=== PATIENT | female | born 1960 | race Caucasian/White ===

== ENCOUNTER 2016-10-05 18:50 | Emergency (ER) | payer SELFPAY ==
[~2016-10-05] VITALS: Ht 160 cm; Wt 85.5 kg
[~2016-10-05 18:50] MED LIST: ALPR0.5T PO; IBUP-1542 PO; IBUPROFEN
[2016-10-05 19:10] VITALS: Ht 160 cm; Wt 85.5 kg
== END 2016-10-06 00:01 | disposition left against medical advice (07) ==
LOC: E/R 18:50
DX: Z53.21 Procedure and treatment not carried out due to patient leaving prior to being seen by health care provider (principal)

== ENCOUNTER → 2017-03-01 | Emergency (ER) | payer MEDICAID ==
[~2017-03-01] VITALS: Ht 152.4 cm; Wt 85.5 kg
[~2017-03-01] MED LIST changes: +DEXAMETHASONE 10 MG/ML 1 ML INJ IM ONE; +HYDROCODONE/APAP (5/325) TAB PO ONE; +KETOROLAC 30 MG INJ IM STA; +NAPR-260 PO; +ONDANSETRON (ODT) 4 MG TAB ODT STA
[2017-03-01 18:56] VITALS: Ht 152.4 cm; Wt 85.5 kg
--- NOTE | 2017-03-01 19:52 | ERD ---
ER Documentation Chief Complaint Date/Time DATE: 03/01/17 TIME: 19:50 Chief Complaint left knee pain x 2 days, denies injury HPI This patient is a 56-year-old Tajik-speaking female with translation help from her adult daughter presenting to the emergency department for chronic bilateral knee pain with acute exacerbation over the past 2 days. The patient also has history of osteoarthritis, hypertension, type 2 diabetes, hypothyroidism, and elevated cholesterol. Symptoms are exacerbated with walking. Symptoms are worse in the left knee. Alleviating factors include ibuprofen. Patient denies trauma, other injuries, fevers, chills, redness, or warmth to the joint. ROS All systems reviewed and are negative except as per history of present illness. Medications Home Meds Active Scripts Naproxen* (Naprosyn*) 500 Mg Tablet, 500 MG PO BID Y for PAIN AND/OR INFLAMMATION, #30 TAB Prov:RANDY BECK PA-C 03/01/17 Ibuprofen* (Motrin*) 600 Mg Tab, 600 MG PO TID for PAIN AND/OR INFLAMMATION, # 30 TAB Prov:KYUNG THEODORE MD 12/28/15 Alprazolam* (Xanax*) 0.5 Mg Tab, 0.5 MG PO TID for PALPITATION, #12 TAB Prov:KYUNG THEODORE MD 12/28/15 Reported Medications [Motrin 1000mg @ 0600 today] No Conflict Check 12/05/12 Allergies Allergies: Coded Allergies: No Known Allergy (Unverified , 03/01/17) PMhx/Soc History of Surgery: No Anesthesia Reaction: No Hx Neurological Disorder: No Hx Respiratory Disorders: No Hx Cardiac Disorders: Yes (HTN) Hx Psychiatric Problems: No Hx Miscellaneous Medical Probl: Yes (DM, HTN, Hypertyrodsim ) Hx Alcohol Use: No Hx Substance Use: No Hx Tobacco Use: No Physical Exam Vitals Vital Signs Date Time Temp Pulse Resp B/P Pulse Ox O2 Delivery O2 Flow Rate FiO2 03/01/17 18:56 99.1 55 20 170/94 97 Physical Exam Const: Nontoxic, well-appearing female in no acute distress. Head: Atraumatic Eyes: Normal Conjunctiva ENT: Normal External Ears, Nose and Mouth. Neck: Full range of motion..~ No meningismus. Resp: Clear to auscultation bilaterally Cardio: Regular rate and rhythm, no murmurs Abd: Soft, non tender, non distended. Normal bowel sounds Skin: No petechiae or rashes Back: No midline or flank tenderness Ext: There is some tenderness palpation of the left knee near the anterior joint line. There is mild edema to the left knee but no ecchymosis noted. There is no warmth to the joint. The patient has limited active and passive range of motion secondary to pain. 2+ pedal pulses noted to the left foot. Neur: Awake and alert Psych: Normal Mood and Affect Results 24 hrs Current Medications Medications (Trade) Dose Ordered Sig/Donovan Route PRN Reason Start Time Stop Time Status Last Admin Dose Admin Ketorolac Tromethamine (Toradol) 30 mg ONCE STAT IM 03/01/17 19:26 03/01/17 19:28 DC 03/01/17 19:47 Dexamethasone (Decadron) 10 mg ONCE ONCE IM 03/01/17 19:30 03/01/17 19:31 DC 03/01/17 19:47 Acetaminophen/ Hydrocodone Bitart ([place] (5/325)) 1 tab ONCE ONCE PO 03/01/17 19:30 03/01/17 19:31 DC 03/01/17 19:48 Ondansetron HCl (Zofran Odt) 4 mg ONCE STAT ODT 03/01/17 19:26 03/01/17 19:28 DC 03/01/17 19:48 Procedures/MDM This patient is a 56-year-old female presenting to the emergency department with chronic bilateral knee pain and osteoarthritis. I believe the patient's acute pain is a exacerbation of her chronic osteoarthritis and chronic knee pain. The patient has had multiple negative plain films in the past and I do not believe that repeat imaging is clinically indicated in the emergency department at this point. However, the patient was advised that she may need further imaging studies such as an MRI as an outpatient. She was advised to have close follow-up with the primary care physician. I have low suspicion for septic joint, fracture, sepsis, or other emergent conditions. The patient was medicated in the department and she was feeling improved upon reevaluation. She is stable for outpatient management with a prescription for naproxen. Her questions and concerns were addressed and she demonstrated good understanding of the discharge plan and diagnosis. Strict ER return precautions were discussed. Departure Diagnosis: Primary Impression: Chronic pain of left knee Condition: Fair Patient Instructions: Reducing Knee Pain and Swelling Referrals: [facility] Usted se lovett hecho un examen mdico de control que le indica que no est en hunter condicin que requiera tratamiento urgente en el Departamento de Emergencia. Un estudio ms profundo y el tratamiento de bird condicin pueden esperar sin ningn riesgo hasta que usted sea atendida/o en el consultorio de bird mdico o hunter cl mary ann. Es responsabilidad suya arreglar hunter francisco para el seguimiento del melanie. MANEJO DE CONDICIONES NO URGENTES EN EL FUTURO 1) Si usted tiene un mdico de atencin primaria: Usted debera llamar a bird mdico de atencin primaria antes de venir al departamento de emergencia. Despus de las horas de consultorio, bird doctor o bird asociado/a est disponible por telfono. El mdico o enfermero de faye en el servicio telefnico puede asesorarle por katelin medio para atender el problema, o melanie contrario se puede programar hunter francisco. 2) Si usted no tiene un mdico de atencin primaria: Llame al mdico o clnica de referencia que aparece abajo alena las horas de consultorio para hacer hunter francisco para que le vean. CLINICAS: [facility] [phone] [facility] [phone] [facility] [phone] [facility] [phone] [facility] [phone] [facility]. [phone] [address] Additional Instructions: No mas mejor en 2-3 duarte, regresar. Mas peor en 24 horas, regresear rapidamente. Ir a doctor primario in 5-7 duarte. Usar instrucciones cuando sonu medicamento. RANDY BECK PA-C Mar 01, 2017 19:52
[2017-03-01 20:16] VITALS: BP 165/92; PULSE 55; RESP 20; TEMP 99.1
== END | disposition home or self-care (01) ==
LOC: FTE 18:48
DX: M25.562 Pain in left knee (principal); E11.9 Type 2 diabetes mellitus without complications; I10 Essential (primary) hypertension; E03.9 Hypothyroidism, unspecified
CPT/HCPCS: 96372; J1100; J1885; Z7502; Z7610

== ENCOUNTER 2017-08-07 19:19 | Inpatient (IN) | payer MEDICAID, OTHER ==
[~2017-08-07] VITALS: Ht 162.6 cm; Wt 85.2 kg
[~2017-08-07 19:19] MED LIST changes: -DEXAMETHASONE 10 MG/ML 1 ML INJ IM ONE; -HYDROCODONE/APAP (5/325) TAB PO ONE; -KETOROLAC 30 MG INJ IM STA; -ONDANSETRON (ODT) 4 MG TAB ODT STA
[2017-08-07 21:44] LABS: BASOPHILS % 0.4 % (0.0-2.0); EOSINOPHILS # 0.2 10^3/ul (0.0-0.5); EOSINOPHILS % 2.1 % (0.0-7.0); HEMATOCRIT 37.3 % (37.0-47.0); HEMOGLOBIN 12.9 g/dl (12.0-16.0); LYMPHOCYTES # 3.4 10^3/ul (0.8-2.9); LYMPHOCYTES % 33.5 % (15.0-51.0); MEAN CORPUSCULAR HEMOGLOBIN 29.9 pg (29.0-33.0); MEAN CORPUSCULAR HGB CONC 34.6 g/dl (32.0-37.0); MEAN CORPUSCULAR VOLUME 86.5 fl (82.0-101.0); MEAN PLATELET VOLUME 9.6 fl (7.4-10.4); MONOCYTE # 0.7 10^3/ul (0.3-0.9); NEUTROPHIL # 5.8 10^3/ul (1.6-7.5); NEUTROPHILS % 56.6 % (39.0-77.0); PLATELET COUNT 302 10^3/UL (140-415); RED BLOOD COUNT 4.31 10^6/ul (4.20-5.40); RED CELL DISTRIBUTION WIDTH 11.9 % (11.5-14.5); WHITE BLOOD COUNT 10.2 10^3/ul (4.8-10.8)
[2017-08-07 22:15] LABS: ANION GAP 13 (8-16); BLOOD UREA NITROGEN 16 mg/dl (7-20); CALCIUM 9.6 mg/dl (8.4-10.2); CARBON DIOXIDE 27 mmol/L (21-31); CHLORIDE 105 mmol/L (97-110); CREATININE 0.63 mg/dl (0.44-1.00); GLUCOSE 138 mg/dl (70-220); POTASSIUM 3.7 mmol/L (3.5-5.1); SODIUM 141 mmol/L (135-144)
--- NOTE | 2017-08-07 22:17 | RADRPT ---
PROCEDURE: XR Chest. CLINICAL INDICATION: Patient experiencing Syncope. TECHNIQUE: Single frontal view of the chest was obtained COMPARISON: Chest radiograph dated December 28, 2015. FINDINGS: The heart and mediastinum are within normal limits. The lungs are clear. There is no pleural effusion or pneumothorax. Degenerative changes of the spine and shoulder joints are present. IMPRESSION: 1. No acute cardiopulmonary disease. RPTAT:AAJJ Physician Corry Date Time Electronically viewed and signed by Shay Reed Physician on 08/07/2017 22:16 QL/
--- NOTE | 2017-08-07 22:20 | RADRPT ---
PROCEDURE: Noncontrast CT Head. CLINICAL INDICATION: Syncope TECHNIQUE: Noncontrast CT of the head was obtained. The administered radiation dose was CTDI vol = 44.11 mGy, DLP = 720.23 mGy-cm. One or more of the following dose reduction techniques were used: Au tomated exposure control, Adjustment of the mA and/or kV according to patient size, or Use of iterat gage reconstruction technique. COMPARISON: There are no similar studies submitted for comparison. FINDINGS: There is no acute intracranial hemorrhage, midline shift, or mass effect. The cerebral dumont-white ma tter differentiation appears preserved. No extra-axial collection is seen. The cerebral sulci and ve ntricles are within normal limits in size and configuration for patient's age. Low attenuation in th e periventricular and deep cerebral white matter is nonspecific, but suggestive of mild chronic micr oangiopathic change. 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 The basal cisterns are pres erved. The brainstem and cerebellum are grossly unremarkable, although suboptimally evaluated with C T secondary to beam-hardening artifact. There is intracranial calcific atherosclerotic disease invol ving the internal carotid arteries bilaterally. There is a small amount of frothy secretions within the left sphenoid sinus. No air-fluid levels are seen. There is under pneumatization of the mastoid air cells bilaterally. No acute fracture or suspicious osseous lesion is identified. Incomplete osse ous fusion of the posterior arch of C1 is suggested (partially imaged). IMPRESSION: 1. No evidence of an acute intracranial process. 2. Evidence of mild chronic microangiopathic cerebral white matter change. 3. Punctate calcification along the cortex of the right anterior frontal lobe is nonspecific, possib ly representing sequelae of neurocysticercosis or other chronic inflammatory/infectious/traumatic et iology. 4. Intracranial calcific atherosclerotic disease. 5. Small amount of frothy secretions within the left sphenoid sinus. No air-fluid levels. RPTAT: HRC Lisa Encinas Physician Date Time Electronically viewed and signed by Lisa Encinas Physician on 08/07/2017 22:19 JAMES/
[2017-08-07 22:27] LABS: TROPONIN-I < 0.012 ng/ml (0.00-0.12)
[2017-08-07] MEDS ORDERED: hydrALAzine 20 MG INJ IV ONE (22:30)
[2017-08-07] MEDS ORDERED: ACETAMINOPHEN 325 MG TAB PO PRN (23:00)
[2017-08-07] MEDS ORDERED: ONDANSETRON 4 MG INJ IV PRN (23:00)
--- NOTE | 2017-08-07 23:05 | ERD ---
ER Documentation Chief Complaint Chief Complaint sudden dizziness during dinner; Diabetic, EKG done by body worker- SR HPI 56-year-old female with a history of hypertension, diabetes, hypothyroidism, not taking her medications for 6 months, presenting after a syncopal episode at home. She was eating dinner with her family when she suddenly felt dizzy and lost consciousness. Her family states she was unresponsive and limp. She was breathing and had no color change. The patient eventually regained consciousness. They had checked her blood pressure and her systolic blood pressure was over 200. They called ambulance. Patient remembers the entire event. Currently she states she feels generally weak with bilateral shoulder pain that is new, however she denies chest pain, shortness of breath, dizziness , headache, vision disturbance, focal weakness or numbness. There was no trauma. She states her bilateral shoulder pain is new. ROS All systems reviewed and are negative except as per history of present illness. Medications Home Meds Discontinued Reported Medications [Motrin 1000mg @ 0600 today] No Conflict Check 12/05/12 Discontinued Scripts Naproxen* (Naprosyn*) 500 Mg Tablet, 500 MG PO BID Y for PAIN AND/OR INFLAMMATION, #30 TAB Prov:RANDY BECK PA-C 03/01/17 Ibuprofen* (Motrin*) 600 Mg Tab, 600 MG PO TID for PAIN AND/OR INFLAMMATION, # 30 TAB Prov:KYUNG THEODORE MD 12/28/15 Alprazolam* (Xanax*) 0.5 Mg Tab, 0.5 MG PO TID for PALPITATION, #12 TAB Prov:KYUNG THEODORE MD 12/28/15 Allergies Allergies: Coded Allergies: No Known Allergy (Unverified , 08/07/17) PMhx/Soc Medical and Surgical Hx: pt denies Surgical Hx History of Surgery: No Anesthesia Reaction: No Hx Neurological Disorder: No Hx Respiratory Disorders: No Hx Cardiac Disorders: Yes (HTN) Hx Psychiatric Problems: No Hx Miscellaneous Medical Probl: Yes (DM, HTN, hypothyroidism) Hx Alcohol Use: No Hx Substance Use: No Hx Tobacco Use: No Smoking Status: Never smoker FmHx Family History: diabetes, No coronary disease Physical Exam Vitals Vital Signs Date Time Temp Pulse Resp B/P Pulse Ox O2 Delivery O2 Flow Rate FiO2 08/07/17 21:08 98.6 53 20 220/58 100 Room Air 08/07/17 19:35 98.6 58 20 200/100 98 Physical Exam Const: Well-appearing, nontoxic, no apparent distress Head: Atraumatic Eyes: Normal Conjunctiva ENT: Normal External Ears, Nose and Mouth. Neck: Full range of motion..~ No meningismus. No JVD Resp: Clear to auscultation bilaterally Cardio: Regular rate and rhythm, no murmurs. 2+ distal pulses in all 4 extremities Abd: Soft, non tender, non distended. Normal bowel sounds Skin: No petechiae or rashes Back: No midline or flank tenderness Ext: No cyanosis, or edema. Normal to inspection and palpation. Full range of motion of all joints., Neur: Awake and alert Oriented 3, cranial nerves intact, strength and sensations intact in all 4 extremities. Romberg negative. no pronator drift. Normal gait. Cerebellar exam normal. Psych: Normal Mood and Affect Result Diagram: 08/07/17 2100 08/07/17 2100 Results 24 hrs Laboratory Tests Test 08/07/17 21:00 White Blood Count 10.210^3/ul Red Blood Count 4.3110^6/ul Hemoglobin 12.9g/dl Hematocrit 37.3% Mean Corpuscular Volume 86.5fl Mean Corpuscular Hemoglobin 29.9pg Mean Corpuscular Hemoglobin Concent 34.6g/dl Red Cell Distribution Width 11.9% Platelet Count 88567^3/UL Mean Platelet Volume 9.6fl Neutrophils % 56.6% Lymphocytes % 33.5% Monocytes % 7.0% Eosinophils % 2.1% Basophils % 0.4% Nucleated Red Blood Cells % 0.0/100WBC Neutrophils # 5.810^3/ul Lymphocytes # 3.410^3/ul Monocytes # 0.710^3/ul Eosinophils # 0.210^3/ul Basophils # 0.010^3/ul Nucleated Red Blood Cells # 0.010^3/ul Sodium Level 141mmol/L Potassium Level 3.7mmol/L Chloride Level 105mmol/L Carbon Dioxide Level 27mmol/L Anion Gap 13 Blood Urea Nitrogen 16mg/dl Creatinine 0.63mg/dl Glucose Level 138mg/dl Calcium Level 9.6mg/dl Troponin I < 0.012ng/ml Current Medications Medications (Trade) Dose Ordered Sig/Donovan Route PRN Reason Start Time Stop Time Status Last Admin Dose Admin Hydralazine HCl (Apresoline) 10 mg ONCE ONCE IV 08/07/17 22:30 08/07/17 22:31 DC 08/07/17 22:46 Ondansetron HCl (Zofran Inj) 4 mg ER BRIDGE PRN IV NAUSEA AND/OR VOMITING 08/07/17 23:00 08/08/17 22:59 Acetaminophen (Tylenol Tab) 650 mg ER BRIDGE PRN PO MILD PAIN/FEVER 08/07/17 23:00 08/08/17 22:59 Procedures/MDM EMERGENT LABS AND DIAGNOSTIC STUDIES: Lab Results above were reviewed and interpreted by me. CBC unremarkable BMP unremarkable Troponin within normal limits 12-lead EKG was interpreted by Ari Parada MD: Sinus bradycardia Normal axis Normal intervals No acute ST or T wave changes suggestive of acute ischemia or STEMI. Radiology Results as interpreted by Radiology below were reviewed by Aurea Parada MD: Chest x-ray: No acute cardiopulmonary disease CT head: IMPRESSION: 1. No evidence of an acute intracranial process. 2. Evidence of mild chronic microangiopathic cerebral white matter change. 3. Punctate calcification along the cortex of the right anterior frontal lobe is nonspecific, possibly representing sequelae of neurocysticercosis or other chronic inflammatory/infectious/traumatic etiology. 4. Intracranial calcific atherosclerotic disease. 5. Small amount of frothy secretions within the left sphenoid sinus. No air- fluid levels. RPTAT: HRC Physician Sabine Date Time Electronically viewed and signed by Lisa Encinas Physician on 08/07/2017 22: 19 Initial Nursing notes reviewed. Previous Medical Records requested via the Electronic Health Record. EMERGENCY DEPARTMENT COURSE / MEDICAL DECISION MAKING: The patient presented after a syncopal episode. She was noted to have significantly high blood pressure, concerning for hypertensive emergency versus urgency. Hydralazine 10 mg IV was given. Differential includes but is not limited to cardiac arrhythmia or ischemia, pulmonary embolism, vasovagal syncope , situational syncope, dehydration with orthostatic hypotension, hemorrhage, sepsis, stroke ,ICH, hypoglycemia. I have a low suspicion for seizure, stroke, or serious head injury. Low suspicion for dissection. Blood sugar was normal. EKG showed no significant arrhythmia or ischemia. Labs were notable for unremarkable. Chest Xray showed no acute abnormalities. CT head did not show any evidence of stroke or intracranial hemorrhage. Given the patients medical history and risk factors, occult etiology such as fatal dysrhythmia cannot be ruled out. I do not believe patient is safe for discharge and will need admission for telemetry monitoring and further workup. Accepting Care Team: Current data and ongoing care discussed. Time: Time of admission Primary Provider: Edu Outstanding Data: none Departure Diagnosis: Primary Impression: Syncope Syncope type: unspecified Qualified Code: R55 - Syncope, unspecified syncope type Additional Impression: Hypertensive urgency Condition: Serious STUART PARADA MD Aug 07, 2017 23:05
[2017-08-08] VITALS (15 sets, daily range): BP systolic 132–194; BP diastolic 60–80; PULSE 40–71; RESP 16–18; TEMP 98.6; Ht 162.6 cm; Wt 85.2 kg
[2017-08-08] MEDS ORDERED: DEXTROSE 50% 50 ML SYRINGE IV PRN ×2 (04:00)
[2017-08-08] MEDS ORDERED: GLUCOSE GEL 15 GRAM TUBE PO PRN ×2 (04:00)
[2017-08-08] MEDS ORDERED: GLUCAGON 1 MG INJ IM PRN (04:00)
[2017-08-08] MEDS ORDERED: GLUCOSE GEL 15 GRAM TUBE BUCCAL PRN (04:00)
[2017-08-08] MEDS: INSULIN ASPART [NOVOLOG] 3 ML PEN SC SCH ×4 (06:55→20:38)
[2017-08-08 07:32] LABS: BASOPHILS % 0.4 % (0.0-2.0); EOSINOPHILS # 0.2 10^3/ul (0.0-0.5); EOSINOPHILS % 2.3 % (0.0-7.0); HEMOGLOBIN 12.2 g/dl (12.0-16.0); LYMPHOCYTES # 2.8 10^3/ul (0.8-2.9); LYMPHOCYTES % 33.2 % (15.0-51.0); MEAN CORPUSCULAR HEMOGLOBIN 29.5 pg (29.0-33.0); MEAN CORPUSCULAR HGB CONC 33.9 g/dl (32.0-37.0); MEAN PLATELET VOLUME 9.7 fl (7.4-10.4); MONOCYTE # 0.5 10^3/ul (0.3-0.9); MONOCYTES % 6.4 % (0.0-11.0); NEUTROPHIL # 4.8 10^3/ul (1.6-7.5); NEUTROPHILS % 57.3 % (39.0-77.0); PLATELET COUNT 295 10^3/UL (140-415); RED BLOOD COUNT 4.14 10^6/ul (4.20-5.40); WHITE BLOOD COUNT 8.4 10^3/ul (4.8-10.8)
[2017-08-08 07:46] LABS: ALBUMIN 3.9 g/dl (3.3-4.9); ALBUMIN/GLOBULIN RATIO 1.14; BILIRUBIN,INDIRECT 0.4 mg/dl (0-1.1); BILIRUBIN,TOTAL 0.4 mg/dl (0.2-1.3); CALCIUM 9.5 mg/dl (8.4-10.2); CHOL/HDL RATIO 5.4 RATIO; CREATININE 0.55 mg/dl (0.44-1.00); MAGNESIUM 1.8 mg/dl (1.7-2.5); PHOSPHORUS 4.7 mg/dl (2.5-4.9); POTASSIUM 3.9 mmol/L (3.5-5.1); TOTAL PROTEIN 7.3 g/dl (6.1-8.1)
[2017-08-08 08:12] LABS: THYROID STIMULATING HORMONE 4.61 MIU/L (0.465-4.680)
--- NOTE | 2017-08-08 09:45 | RADRPT ---
PROCEDURE: Carotid ultrasound CLINICAL INDICATION: Hypertension, carotid bruits TECHNIQUE: Eng scale, color doppler, spectral doppler ultrasound of the bilateral carotid and perri tebral arteries. This study indirectly references the measurement of the distal ICA diameter as the denominator for s tenosis measurement. Validated velocity measurements with angiographic measurements, velocity criter ia are extrapolated from diameter data as defined by: *Cartoid artery stenosis: eng-scale and Doppl er US diagnosis. Society of Radiologists in Ultrasound Consensus Conference. Radiology 2003; 229: 34 0-346. SRU Consensus Conference Criteria for the Diagnosis of Carotid Artery Stenosis* Degree of Stenosis, % ICA PSV, cm/sec Plaque Estimate, % ICA/CCA PSV Ratio Normal <125 None <2.0 <50 <125 <50 <2.0 50 69 125-230 >50 2.0-4.0 >70 but less than near occlusion >230 >50 <4.0 Near occlusion High, low, or undetectable Visible Variable Total occlusion Undetectable Visible, no detectable lumen Not applicable COMPARISON: No prior studies are available for comparison. FINDINGS: Location Right CCA69 - 95 cm/sec Prox ICA 78 cm/sec Mid UYL792 cm/sec Dist ICA81 cm/sec HIN718 cm/sec ICA/CCA1.5 Left CCA97 - 109 cm/sec Prox ICA 89 cm/sec Mid ICA92 cm/sec Dist ICA96 cm/sec QDX816 cm/sec ICA/CCA1.0 Plaque burden: No significant plaque is seen. Antegrade flow is seen within the vertebral arteries bilaterally. IMPRESSION: No evidence of a hemodynamically significant carotid stenosis. RPTAT: AADD .Elver Metcalf MD, Date Time Electronically viewed and signed by .Elver Metcalf MD, on 08/08/2017 09:45 .B/
--- NOTE | 2017-08-08 09:51 | HP ---
Date/Time of Note Date/Time of Note DATE: 08/08/17 TIME: 09:43 Assessment/Plan VTE Prophylaxis VTE Prophylaxis Intervention: heparin Lines/Catheters IV Catheter Type (from [facility] [place]): Saline Lock Urinary Cath still in place: No Assessment/Plan Assessment/Plan 1. Syncope, likely secondary to bradycardia -Continue telemetry monitoring Trend troponin Check thyroid profile 2D echo Carotid Doppler ultrasound Cardiology consult 2. Hypertensive urgency Continue antihypertensives adjustment as needed 3. History of diabetes Check A1c Insulin while in-house 4. History of hypothyroidism: Off medication for over 6 months Check TSH and free T4 HPI/ROS Admit Date/Time Admit Date/Time Aug 07, 2017 at 22:49 Hx of Present Illness This is a 56-year-old female with a history of diabetes, arthritis, hypothyroidism, and medication noncompliance. Patient was brought to the ER after having had a syncopal episode. Information is mainly provided from the daughter who was at the bedside. She stated that while the patient was eating dinner, all of a sudden she had loss of consciousness. From description, patient appeared to be flaccid. She never lost a pulse and was actively breathing. No seizure-like activity. No head trauma. Systolic blood pressure at that time was in the 200s. According to the daughter, patient is noncompliant with her medications. She did not take her thyroid medication for over 6 months and she also does not consistently take her diabetes medications. Patient denied chest pain, shortness of breath, palpitations or dizziness/ lightheadedness. She did complain of pain in her shoulder area. When she presented to the ER she was noted to be bradycardic in the 50s. Heart rate so far has been as low as 40. 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 There were no acute findings. Chest x-ray was no active disease. PMH/Family/Social Social History Smoking Status: Never smoker Exam/Review of Systems Vital Signs Vitals Vital Signs Date Time Temp Pulse Resp B/P Pulse Ox O2 Delivery O2 Flow Rate FiO2 08/08/17 08:00 44 08/08/17 07:26 98.0 18 194/80 96 08/08/17 06:24 Room Air Intake and Output 08/07/17 08/07/17 08/08/17 15:00 23:00 07:00 Intake Total 100 ml Balance 100 ml Exam Constitutional: other (No acute distress) Head: atraumatic, normocephalic Eyes: EOMI, PERRL Respiratory: clear to auscultation, normal air movement Cardiovascular: other (Bradycardic with regular rhythm) Gastrointestinal: non-tender, soft Extremities: normal pulses Neurological: nl mental status, nl speech Labs Result Diagram: 08/08/1754 08/08/17 0654 Medications Medications Current Medications Hydralazine HCl (Apresoline) 10 mg Q4 PRN IV ELEVATED SYSTOLIC BP; Start at 05:00 Miscellaneous Information 1 ea NOTE XX ; Start 08/08/17 at 04:00 Glucose (Glutose) 15 gm Q15M PRN PO DECREASED GLUCOSE; Start 08/08/17 at 04:00 Glucose (Glutose) 22.5 gm Q15M PRN PO DECREASED GLUCOSE; Start 08/08/17 at 04: 00 Dextrose (D50w Syringe) 25 ml Q15M PRN IV DECREASED GLUCOSE; Start 08/08/17 at 04:00 Dextrose (D50w Syringe) 50 ml Q15M PRN IV DECREASED GLUCOSE; Start 08/08/17 at 04:00 Glucagon (Glucagen) 1 mg Q15M PRN IM DECREASED GLUCOSE; Start 08/08/17 at 04:00 Glucose (Glutose) 15 gm Q15M PRN BUCCAL DECREASED GLUCOSE; Start 08/08/17 at 04 :00 Influenza Virus Vaccine (Fluzone) 0.5 ml ONCE ONCE IM* ; Start 08/09/17 at 09:00 ; Stop 08/09/17 at 09:01 RANDY SMITH MD Aug 08, 2017 09:51
[2017-08-08] MEDS: hydrALAzine 20 MG INJ IV PRN ×2 (10:16→20:42)
[2017-08-08] MEDS: AMLODIPINE 5 MG TAB PO SCH ×2 (12:15→20:42)
--- NOTE | 2017-08-08 14:44 | PN ---
Date/Time of Note Date/Time of Note DATE: 08/08/17 TIME: 14:38 Assessment/Plan VTE Prophylaxis VTE Prophylaxis Intervention: SCD's Lines/Catheters IV Catheter Type (from [facility]): [place] [facility] Urinary Cath still in place: No Assessment/Plan Chief Complaint/Hosp Course Assessment and plan 1. Syncope. Suspect secondary to bradycardia. Continue telemetry monitoring for now. Serial troponins negative so far. Follow-up on echocardiogram. Of note carotid Doppler did show no evidence of hemodynamically significant carotid artery stenosis. Will monitor on telemetry for now. Accounts Supervisor consultation to follow. 2. Hypertensive urgency. Will start on antihypertensives. Will adjust as needed. 3. History of diabetes. Continue insulin regimen. 4. History of hypothyroidism. Patient reports not taking her medication for 6 months. TSH and T4 within normal levels. Will monitor for now. Disposition plan: Monitor on telemetry. Analgesics for cephalgia. Start on antihypertensives. Accounts Supervisor to follow. Discussed plan of care with Dr. Beatty Problems: Subjective 24 Hr Interval Summary Free Text/Dictation reports having headache Exam/Review of Systems Vital Signs Vitals Vital Signs Date Time Temp Pulse Resp B/P Pulse Ox O2 Delivery O2 Flow Rate FiO2 08/08/17 12:00 71 08/08/17 11:22 98.0 16 177/79 98 08/08/17 06:24 Room Air Intake and Output 08/07/17 08/07/17 08/08/17 14:59 22:59 06:59 Intake Total 100 ml Balance 100 ml Exam Constitutional: alert, obese, oriented Psych: nl mood/affect Head: normocephalic Eyes: nl conjunctiva Neck: non-tender, supple Respiratory: clear to auscultation, normal air movement Cardiovascular: regular rate and rhythm Gastrointestinal: soft Musculoskeletal: nl extremities to inspection Neurological: DIRECTOR IMMUNOLOGY II-XII intact, nl mental status, nl speech Skin: nl turgor Results Result Diagram: 08/08/17 0654 08/08/17 0654 Results 24 hrs Laboratory Tests Test 08/07/17 21:00 08/08/17 06:18 08/08/17 06:54 08/08/17 12:09 White Blood Count 10.2 # 8.4 Red Blood Count 4.31 4.14 L Hemoglobin 12.9 12.2 Hematocrit 37.3 36.0 L Mean Corpuscular Volume 86.5 87.0 Mean Corpuscular Hemoglobin 29.9 29.5 Mean Corpuscular Hemoglobin Concent 34.6 33.9 Red Cell Distribution Width 11.9 12.0 Platelet Count 302 295 Mean Platelet Volume 9.6 # 9.7 Neutrophils % 56.6 57.3 Lymphocytes % 33.5 33.2 Monocytes % 7.0 6.4 Eosinophils % 2.1 2.3 Basophils % 0.4 0.4 Nucleated Red Blood Cells % 0.0 0.0 Neutrophils # 5.8 4.8 Lymphocytes # 3.4 H 2.8 Monocytes # 0.7 0.5 Eosinophils # 0.2 0.2 Basophils # 0.0 0.0 Nucleated Red Blood Cells # 0.0 0.0 Sodium Level 141 143 Potassium Level 3.7 3.9 Chloride Level 105 108 Carbon Dioxide Level 27 27 Anion Gap 13 12 Blood Urea Nitrogen 16 13 Creatinine 0.63 0.55 Glucose Level 138 146 Calcium Level 9.6 9.5 Troponin I < 0.012 < 0.012 Bedside Glucose 131 123 Hemoglobin A1c 6.9 H Phosphorus Level 4.7 Magnesium Level 1.8 Total Bilirubin 0.4 Direct Bilirubin 0.00 Indirect Bilirubin 0.4 Aspartate Amino Transf (AST/SGOT) 27 Alanine Aminotransferase (ALT/SGPT) 44 Alkaline Phosphatase 78 Total Protein 7.3 Albumin 3.9 Globulin 3.40 H Albumin/Globulin Ratio 1.14 Triglycerides Level 197 H Cholesterol Level 196 LDL Cholesterol, Calculated 121 HDL Cholesterol 36 L Cholesterol/HDL Ratio 5.4 Thyroid Stimulating Hormone (TSH) 4.610 Free Thyroxine 1.18 Medications Medications Current Medications Hydralazine HCl (Apresoline) 10 mg Q4 PRN IV ELEVATED SYSTOLIC BP Last administered on 08/08/17t 10:16; Admin Dose 10 MG; Start 08/08/17 at 05:00 Miscellaneous Information 1 ea NOTE XX ; Start 08/08/17 at 04:00 Glucose (Glutose) 15 gm Q15M PRN PO DECREASED GLUCOSE; Start 08/08/17 at 04:00 Glucose (Glutose) 22.5 gm Q15M PRN PO DECREASED GLUCOSE; Start 08/08/17 at 04: 00 Dextrose (D50w Syringe) 25 ml Q15M PRN IV DECREASED GLUCOSE; Start 08/08/17 at 04:00 Dextrose (D50w Syringe) 50 ml Q15M PRN IV DECREASED GLUCOSE; Start 08/08/17 at 04:00 Glucagon (Glucagen) 1 mg Q15M PRN IM DECREASED GLUCOSE; Start 08/08/17 at 04:00 Glucose (Glutose) 15 gm Q15M PRN BUCCAL DECREASED GLUCOSE; Start 08/08/17 at 04 :00 Influenza Virus Vaccine (Fluzone) 0.5 ml ONCE ONCE IM* ; Start 08/09/17 at 09:00 ; Stop 08/09/17 at 09:01 Amlodipine Besylate (Norvasc) 5 mg BID PO Last administered on 08/08/17t 12:15 ; Admin Dose 5 MG; Start 08/08/17 at 12:00 EMORY GOODRICH Aug 08, 2017 14:44
[2017-08-08] MEDS ORDERED: ACET/BUTAL/CAFF TAB PO PRN (15:00)
--- NOTE | 2017-08-08 15:49 | RADRPT ---
Echocardiogram Report Patient Name: ZOIE SCHWARTZ Gender: Female Date: 1960 Study Date: 08-Aug-2017 Vinyl Cutter: [facility] Location: [facility] Ref. Physician: RANDY SMITH Quality: Good Procedures: Transthoracic echocardiogram with complete 2D, M-Mode, and doppler examination. Indications: Syncope. 2D/M Mode Doppler Measurement Value Normal Ranges Measurement Value Normal Ranges LVIDd 2D 4.7 3.5 - 5.6 cm AV Peak Guero 1.7 m/sec LVIDs 2D 2.0 2.1 - 4.1 cm AV Peak PG 10.9 mmHg LVPWd 2D 0.8 0.6 - 1.1 cm LVOT Peak Guero 1.5 m/sec IVSd 2D 0.9 0.6 - 1.1 cm LVOT Peak PG 9.1 mmHg AoR Diam 2D 2.7 2.0 - 3.7 cm MV E Peak Guero 0.9 m/sec EDV 2D 100.4 cm3 MV A Peak Guero 0.6 m/sec ESV 2D 8.5 cm3 MV E/A 1.6 LA Dimen 2D 3.1 2.3 - 4.0 cm MV Decel Time 202 msec MV Decel Latimer 5 MV E/A 1.6 TR Peak Guero 3.0 m/sec TR Peak PG 35.2 mmHg RVSP 39.0 mmHg Findings Left Ventricle: Normal left ventricular systolic function. Normal left ventricular cavity size. Normal left ventricular wall thickness. Ejection fraction is visually estimated at 6570 %. Tissue Doppler/Mitral Doppler indices are within normal limits. Right Ventricle: Normal right ventricular size. Normal right ventricular systolic function. Left Atrium: The left atrium is normal in size. Right Atrium: The right atrium is normal in size. Mitral Valve: Normal appearance and function of the mitral valve with trace physiologic regurgitation. Aortic Valve: Normal appearance of the aortic valve. No significant aortic stenosis or insufficiency. Tricuspid Valve: Normal appearance of the tricuspid valve. Estimated peak PA systolic pressure 39 mmHg. There is mild tricuspid regurgitation. Pulmonic Valve: Normal pulmonic valve appearance. Pericardium: Normal pericardium with no significant pericardial effusion. Aorta: Normal aortic root. IVC: Normal size and normal respiratory collapse consistent with normal right atrial pressure. Conclusions 1.The left ventricle is normal in size and systolic function. 2.Estimated left ventricular ejection fraction of 65-70%. Electronically Signed By: Matheus Cornejo 08-Aug-2017 15:47:59 -0800 Patient Name: ZOIE SCHWARTZ Study Date: 08-Aug-[id number]
--- NOTE | 2017-08-08 17:14 | RADRPT ---
PROCEDURE: MR Brain without contrast. CLINICAL INDICATION: Neurologic deficit TECHNIQUE: An MRI of the brain was performed on a high-resolution MR scanner utilizing the followi ng sequences: Sagittal and axial T1 weighted, axial T2 weighted, axial FLAIR, coronal GRE, and axial diffusion weighted with ADC mapping. Images were reviewed high-resolution PACS workstation. No con trast was administered. COMPARISON: Correlation head CT yesterday FINDINGS: No acute parenchymal hemorrhage, mass effect, or midline shift. No evidence of recent infarct. A few cerebral white matter FLAIR hyperintense foci in the bilateral frontal white matter are identified. No suspicious parenchymal hypointense signal abnormalities are seen on the GRE images to suggest the presence of blood degradation products. The ventricles are normal in size for age. Normal flow voids are visible in the proximal intracranial arteries suggesting their patency. Mild paranasal sinus mucosal thickening with frothy secretions left sphenoid sinus. IMPRESSION: No acute intracranial abnormality or evidence of recent infarct. A few cerebral white matter FLAIR hyperintense foci in the bilateral frontal white matter are nonspe cific but could be due to a sequela of chronic headaches, prior trauma, mild chronic microvascular d isease, or other etiologies. RPTAT: AA .Aaron Long MD, MD Date Time Electronically viewed and signed by .Aaron Long MD, on 08/08/2017 17:13 .T/
--- NOTE | 2017-08-08 20:24 | CONS ---
Date/Time of Note Date/Time of Note DATE: 08/08/17 TIME: :17 Assessment/Plan Assessment/Plan Chief Complaint/Hosp Course Assessment: Syncope - possibly due to symptomatic bradycardia vs hypertensive encephalopathy Accelerated hypertension Sinus bradycardia - only down to the 40s and asymptomatic since admission Diabetes mellitus History of hypothyroidism - now with normal TSH and FT4 off replacement Medication noncompliance Recommendations: -echocardiogram showed normal LVEF 65-70% -continue amlodipine 5mg BID -defer permanent pacemaker at this time as not clear that patient has symptomatic bradycardia or that it caused syncope, would consider if patient has recurrent symptoms Problems: Consultation Date/Type/Reason Admit Date/Time Aug 07, 2017 at 22:49 Type of Consultation: Cardiology Reason for Consultation syncope Hx of Present Illness The patient is a 56 year-old female who presented after a syncopal episode. Per her daughter, the patient was eating dinner when she transiently became altered and unresponsive. No prior syncope. On presentation, the blood pressure was elevated 220/58. The patient has a diagnosis of hypertension, but is noncompliant with medications. EKG showed sinus bradycardia in the 40s, but otherwise normal. Troponins have been negative x 2. 14 point review of systems negative other than per HPI. Past Medical History Hypertension Diabetes mellitus Hypothyroidism Medication noncompliance Past Surgical History Past Surgical Hx: other (cesarian section) Family History Significant Family History: no pertinent family hx Social History Alcohol Use: none Smoking Status: Never smoker Drug Use: none Exam/Review of Systems Vital Signs Vitals Vital Signs Date Time Temp Pulse Resp B/P Pulse Ox O2 Delivery O2 Flow Rate FiO2 08/08/17 16:00 49 08/08/17 15:22 97.8 16 144/63 97 08/08/17 06:24 Room Air Intake and Output 08/07/17 08/07/17 08/08/17 15:00 23:00 07:00 Intake Total 100 ml Balance 100 ml Exam Constitutional: alert, well developed Psych: nl mood/affect, no complaints Head: atraumatic, normocephalic Eyes: nl conjunctiva, nl lids ENMT: nl external ears & nose, nl nasal mucosa & septum Neck: non-tender, supple, No jvd Respiratory: clear to auscultation, normal air movement Cardiovascular: regular rate and rhythm Gastrointestinal: non-tender, soft Musculoskeletal: nl extremities to inspection Extremities: No clubbing, No cyanosis, No edema Neurological: nl mental status, nl speech Results Result Diagram: 08/08/17 0654 08/08/17 0654 Results 24 hrs Laboratory Tests Test 08/07/17 21:00 08/08/17 06:18 08/08/17 06:54 08/08/17 12:09 White Blood Count 10.2 # 8.4 Red Blood Count 4.31 4.14 L Hemoglobin 12.9 12.2 Hematocrit 37.3 36.0 L Mean Corpuscular Volume 86.5 87.0 Mean Corpuscular Hemoglobin 29.9 29.5 Mean Corpuscular Hemoglobin Concent 34.6 33.9 Red Cell Distribution Width 11.9 12.0 Platelet Count 302 295 Mean Platelet Volume 9.6 # 9.7 Neutrophils % 56.6 57.3 Lymphocytes % 33.5 33.2 Monocytes % 7.0 6.4 Eosinophils % 2.1 2.3 Basophils % 0.4 0.4 Nucleated Red Blood Cells % 0.0 0.0 Neutrophils # 5.8 4.8 Lymphocytes # 3.4 H 2.8 Monocytes # 0.7 0.5 Eosinophils # 0.2 0.2 Basophils # 0.0 0.0 Nucleated Red Blood Cells # 0.0 0.0 Sodium Level 141 143 Potassium Level 3.7 3.9 Chloride Level 105 108 Carbon Dioxide Level 27 27 Anion Gap 13 12 Blood Urea Nitrogen 16 13 Creatinine 0.63 0.55 Glucose Level 138 146 Calcium Level 9.6 9.5 Troponin I < 0.012 < 0.012 Bedside Glucose 131 123 Hemoglobin A1c 6.9 H Phosphorus Level 4.7 Magnesium Level 1.8 Total Bilirubin 0.4 Direct Bilirubin 0.00 Indirect Bilirubin 0.4 Aspartate Amino Transf (AST/SGOT) 27 Alanine Aminotransferase (ALT/SGPT) 44 Alkaline Phosphatase 78 Total Protein 7.3 Albumin 3.9 Globulin 3.40 H Albumin/Globulin Ratio 1.14 Triglycerides Level 197 H Cholesterol Level 196 LDL Cholesterol, Calculated 121 HDL Cholesterol 36 L Cholesterol/HDL Ratio 5.4 Thyroid Stimulating Hormone (TSH) 4.610 Free Thyroxine 1.18 Test 08/08/17 17:39 Bedside Glucose 155 Medications Medications Current Medications Hydralazine HCl (Apresoline) 10 mg Q4 PRN IV ELEVATED SYSTOLIC BP Last administered on 08/08/17t 10:16; Admin Dose 10 MG; Start 08/08/17 at 05:00 Miscellaneous Information 1 ea NOTE XX ; Start 08/08/17 at 04:00 Glucose (Glutose) 15 gm Q15M PRN PO DECREASED GLUCOSE; Start 08/08/17 at 04:00 Glucose (Glutose) 22.5 gm Q15M PRN PO DECREASED GLUCOSE; Start 08/08/17 at 04: 00 Dextrose (D50w Syringe) 25 ml Q15M PRN IV DECREASED GLUCOSE; Start 08/08/17 at 04:00 Dextrose (D50w Syringe) 50 ml Q15M PRN IV DECREASED GLUCOSE; Start 08/08/17 at 04:00 Glucagon (Glucagen) 1 mg Q15M PRN IM DECREASED GLUCOSE; Start 08/08/17 at 04:00 Glucose (Glutose) 15 gm Q15M PRN BUCCAL DECREASED GLUCOSE; Start 08/08/17 at 04 :00 Influenza Virus Vaccine (Fluzone) 0.5 ml ONCE ONCE IM* ; Start 08/09/17 at 09:00 ; Stop 08/09/17 at 09:01 Amlodipine Besylate (Norvasc) 5 mg BID PO Last administered on 08/08/17t 12:15 ; Admin Dose 5 MG; Start 08/08/17 at 12:00 Acetaminophen/ Butalbital/ Caffeine (Fioricet) 2 tab Q4H PRN PO PAIN; Start at 15:00 AARON NAYAK MD Aug 08, 2017 20:23
[2017-08-08] MEDS ORDERED: ACETAMINOPHEN 325 MG TAB PO PRN (23:00)
[2017-08-09] VITALS (9 sets, daily range): BP systolic 135–185; BP diastolic 63–87; PULSE 45–71; RESP 16–18
[2017-08-09] MEDS: AMLODIPINE 5 MG TAB PO SCH (08:11)
[2017-08-09] MEDS: INSULIN ASPART [NOVOLOG] 3 ML PEN SC SCH ×2 (08:23→11:50)
[2017-08-09 08:56] LABS: BASOPHILS % 0.2 % (0.0-2.0); EOSINOPHILS # 0.2 10^3/ul (0.0-0.5); EOSINOPHILS % 2.3 % (0.0-7.0); HEMATOCRIT 37.1 % (37.0-47.0); HEMOGLOBIN 12.8 g/dl (12.0-16.0); LYMPHOCYTES # 2.5 10^3/ul (0.8-2.9); MEAN CORPUSCULAR HGB CONC 34.5 g/dl (32.0-37.0); MEAN CORPUSCULAR VOLUME 87.1 fl (82.0-101.0); MONOCYTE # 0.5 10^3/ul (0.3-0.9); MONOCYTES % 6.2 % (0.0-11.0); NEUTROPHIL # 4.9 10^3/ul (1.6-7.5); NEUTROPHILS % 60.1 % (39.0-77.0); PLATELET COUNT 307 10^3/UL (140-415); RED BLOOD COUNT 4.26 10^6/ul (4.20-5.40); RED CELL DISTRIBUTION WIDTH 12.2 % (11.5-14.5); WHITE BLOOD COUNT 8.2 10^3/ul (4.8-10.8)
[2017-08-09] MEDS ORDERED: INFLUENZA VIRUS VACCINE 0.5 ML (DISPENSING) IM* ONE (09:00)
[2017-08-09 09:42] LABS: CALCIUM 9.2 mg/dl (8.4-10.2); CREATININE 0.61 mg/dl (0.44-1.00); POTASSIUM 3.8 mmol/L (3.5-5.1)
[2017-08-09] MEDS ORDERED: AMLO-145 PO (14:33)
[2017-08-09] MEDS ORDERED: METF500T4 PO (14:33)
--- NOTE | 2017-08-09 14:49 | DS ---
Date/Time of Note Date/Time of Note DATE: 08/09/17 TIME: 14:34 Discharge Summary Admission/Discharge Info Admit Date/Time Aug 09, 2017 at 11:28 Discharge Date/Time Discharge Diagnosis 1. Syncope, likely vasovagal while she was eating, follow up with cardiology 2. Hypertensive urgency. improved, follow up with PCP 3. Diabetes, on metformin 4. Hypothyroidism. on supplement 5. Sinus bradycardia, asymptomatic, follow up with cardiology. Patient Condition: Stable Consults Matheus Cornejo MD-cardiology Hospital Course The patient is a 56 year-old female who presented after a syncopal episode. Per her daughter, the patient was eating dinner when she transiently became altered and unresponsive. No prior syncope. On presentation, the blood pressure was elevated 220/58. The patient has a diagnosis of hypertension, but is noncompliant with medications. EKG showed sinus bradycardia in the 40s, but otherwise normal. Troponin have been negative x 2. Patient has unremarkable echocardiography and carotid US. The syncope is likely vasovagal since it happened while she was eating, and she is asymptomatic while her heart rate is 40s-50s that make sinus bradycardia caused syncope unlikely. Her heart rate could be slower when she had vasovagal. Cement Truck Loader does not feel pacemaker is needed. Patient and her daughter is instructed to monitor her heart rate with blood pressure machine, re[port to her PCP and wind turbine technician when heart rate goes lower and if she feels dizzy. Home Meds Active Scripts Metformin Hcl* (Metformin Hcl*) 500 Mg Tablet, 500 MG PO WITH BREAKFAST DINNE, # 60 TAB Prov:BOGDAN CERRATO MD 08/09/17 Amlodipine Besylate* (Amlodipine Besylate*) 5 Mg Tablet, 5 MG PO BID for 60 Days , #60 TAB Prov:BOGDAN CERRATO MD 08/09/17 Discontinued Reported Medications [Motrin 1000mg @ 0600 today] No Conflict Check 12/05/12 Discontinued Scripts Naproxen* (Naprosyn*) 500 Mg Tablet, 500 MG PO BID Y for PAIN AND/OR INFLAMMATION, #30 TAB Prov:RANDY BECK PA-C 03/01/17 Ibuprofen* (Motrin*) 600 Mg Tab, 600 MG PO TID for PAIN AND/OR INFLAMMATION, # 30 TAB Prov:KYUNG THEODORE MD 4/27/16 Alprazolam* (Xanax*) 0.5 Mg Tab, 0.5 MG PO TID for PALPITATION, #12 TAB Prov:KYUNG THEODORE MD 12/28/15 Follow-up Plan PCP and cardiology in one week Primary Care Provider Not On Staff Doctor Pending Labs Laboratory Tests Test 08/08/17 17:39 08/08/17 20:36 08/09/17 06:11 08/09/17 07:13 Bedside Glucose 155mg/dL (70-220) 164mg/dL (70-220) 142mg/dL (70-220) White Blood Count 8.210^3/ul (4.8-10.8) Red Blood Count 4.2610^6/ul (4.20-5.40) Hemoglobin 12.8g/dl (12.0-16.0) Hematocrit 37.1% (37.0-47.0) Mean Corpuscular Volume 87.1fl (82.0-101.0) Mean Corpuscular Hemoglobin 30.0pg (29.0-33.0) Mean Corpuscular Hemoglobin Concent 34.5g/dl (32.0-37.0) Red Cell Distribution Width 12.2% (11.5-14.5) Platelet Count 45970^3/UL (140-415) Mean Platelet Volume 10.0fl (7.4-10.4) Neutrophils % 60.1% (39.0-77.0) Lymphocytes % 31.0% (15.0-51.0) Monocytes % 6.2% (0.0-11.0) Eosinophils % 2.3% (0.0-7.0) Basophils % 0.2% (0.0-2.0) Nucleated Red Blood Cells % 0.0/100WBC (0.0-0.0) Neutrophils # 4.910^3/ul (1.6-7.5) Lymphocytes # 2.510^3/ul (0.8-2.9) Monocytes # 0.510^3/ul (0.3-0.9) Eosinophils # 0.210^3/ul (0.0-0.5) Basophils # 0.010^3/ul (0.0-0.1) Nucleated Red Blood Cells # 0.010^3/ul (0.0-0.0) Sodium Level 141mmol/L (135-144) Potassium Level 3.8mmol/L (3.5-5.1) Chloride Level 106mmol/L (97-110) Carbon Dioxide Level 25mmol/L (21-31) Anion Gap 14 (8-16) Blood Urea Nitrogen 13mg/dl (7-20) Creatinine 0.61mg/dl (0.44-1.00) Glucose Level 144mg/dl (70-220) Calcium Level 9.2mg/dl (8.4-10.2) Test 08/09/17 08:10 08/09/17 12:02 Bedside Glucose 158mg/dL (70-220) 112mg/dL (70-220) BOGDAN CERRATO MD Aug 09, 2017 14:48
== END 2017-08-09 15:46 | disposition home or self-care (01) | DRG 305 ==
LOC: E/R 19:19 → TEL 22:49 → OBSVTOIN 08-09 11:28
PROVIDERS: ADMIT Internal Medicine; ATTEND Internal Medicine
DX: I16.0 Hypertensive urgency (principal); I67.4 Hypertensive encephalopathy; I10 Essential (primary) hypertension; R00.1 Bradycardia, unspecified; R55 Syncope and collapse; E11.9 Type 2 diabetes mellitus without complications; E03.9 Hypothyroidism, unspecified; Z79.4 Long term (current) use of insulin; Z91.14 Patient's other noncompliance with medication regimen
CPT/HCPCS: 36415; 70450; 70551; 71010; 80048; 80053; 80061; 82962; 83036; 83735; 84100; 84439; 84443; 84484; 85025; 90686; 93005; 93306; 93880; 96374; G0378; J0360; J1815